=== PATIENT | female | born 1985 | race Caucasian/White ===

== ENCOUNTER 2018-03-11 00:15 | Emergency (ER) | payer MEDICAID, OTHER ==
[2018-03-11 00:16] VITALS: BMI 23.8
[2018-03-11] MEDS ORDERED: Naproxen 550 mg Tab PO STA (00:37)
--- NOTE | 2018-03-11 00:43 | ED PDOC ---
Arrival/HPI - General Time Seen by Provider: 03/11/18 00:31 Historian: Patient - History of Present Illness Narrative History of Present Illness (Text): 03/11/18 00:39 32 yo F c/o injury to the L 3rd digit earlier today when she slammed it on a door. Denies any numbness, decrease in ROM, any other injury. Has no other complaints. Past Medical History - Infectious Disease Hx of Infectious Diseases: None - Pulmonary Hx Asthma: Yes - Endocrine/Metabolic Hx Systemic Lupus Erythematosus: Yes Other/Comment: Lupus - Psychiatric Hx Anxiety: Yes Hx Substance Use: No - Surgical History Other/Comment: - Anesthesia Hx Anesthesia: Yes Hx Anesthesia Reactions: No Hx Malignant Hyperthermia: No - Suicidal Assessment Feels Threatened In Home Enviroment: No Family/Social History Family/Social History: No Known Family HX Smoking Status: Never Smoked Hx Alcohol Use: No Hx Substance Use: No Allergies/Home Meds Allergies/Adverse Reactions: Allergies [place] herbal tea Allergy (Uncoded 03/19/15 14:43) Home Medications: Home Meds Medication Instructions Recorded Confirmed Albuterol Sulfate [Albuterol Hfa] 0.09 mg IH PRN PRN 02/06/15 03/23/15 Review of Systems - Review of Systems Constitutional: absent: Fatigue, Fevers Musculoskeletal: Arthralgias, Joint Swelling. absent: Back Pain, Neck Pain Skin: absent: Rash, Pruritis, Skin Lesions Physical Exam Vital Signs Temp Pulse Resp BP Pulse Ox 03/11/18 00:47 98.2 F 61 18 103/82 97 Temperature: Afebrile Blood Pressure: Normal Pulse: Regular Respiratory Rate: Normal Appearance: Positive for: Well-Appearing, Non-Toxic, Comfortable Pain Distress: None Mental Status: Positive for: Alert and Oriented X 3 - Systems Exam Lower Extremity: Present: NORMAL PULSES, Normal ROM, Tenderness (+tenderness with mild edema and ecchymosis to the L 3rd PIP with 2 small <1 cm skin tears, + FROM, distal sensation and cap refill <2 sec. ), Neurovascularly Intact, Capillary Refill < 2 s. No: Temperature Abnormalties Neurological: Present: GCS=15, CN II-XII Intact Skin: Present: Warm, Dry, Normal Color. No: Rashes Psychiatric: Present: Alert, Oriented x 3 Medical Decision Making ED Course and Treatment: 03/11/18 00:48 Plan : - XR L 3rd digit - Naprosyn po Patient is refusing to wait for XR, states that she would rather leave the ER. Patient refuses further care, evaluation or treatment in the ER. Patient informed of the reasons for the following and planned treatment, which patient understands, however still refuses. Patient informed of the risk and benefits of treatment. Informed that the risk could include worsening of current conditions, undiagnosed conditions, disability or even . Patient understands the following risk and the benefits of treatment. Patient has the capacity to make decisions and still refuses treatment by RN, PA and ER MD. Patient is refusing to sign any AMA forms. Patient encouraged to return to the ER at any time and to follow up with pmd. - RAD Interpretation Radiology Orders: 03/11/18 00:37 HAND LEFT 3RD DIGIT (FINGER) [RAD] Stat - Medication Orders Current Medication Orders: Discontinued Medications Naproxen (Anaprox Ds) 550 mg PO ONCE STA Stop: 03/11/18 00:38 Last Admin: 03/11/18 00:55 Dose: 550 mg - PA / MAINTENANCE AND CUSTODIAN SUPERVISOR / Resident Statement MD/DO has reviewed & agrees with the documentation as recorded. Disposition/Present on Arrival - Present on Arrival Any Indicators Present on Arrival: No History of DVT/PE: No History of Uncontrolled Diabetes: No Urinary Catheter: No History of Decub. Ulcer: No - Disposition Have Diagnosis and Disposition been Completed?: No Diagnosis: Finger injury Disposition: AGAINST MEDICAL ADVICE Disposition Time: 01:30 Condition: UNKNOWN Referrals: Madhu Suggs MD [Primary Care Provider] - Follow up with primary Forms: [employer] (Spanish)
[2018-03-11 00:50] VITALS: BP 103/82; PULSE 61; RESP 18; TEMP 98.2; O2SAT 97
== END 2018-03-11 01:30 | disposition left against medical advice (07) ==
LOC: ED 00:15
DX: S69.92XA Unspecified injury of left wrist, hand and finger(s), initial encounter (principal); W23.0XXA Caught, crushed, jammed, or pinched between moving objects, initial encounter; M32.9 Systemic lupus erythematosus, unspecified